=== PATIENT | female | born 1975 | race Hispanic/Latino ===

== ENCOUNTER 2024-11-17 12:41 | Emergency (ER) | payer OTHER ==
[~2024-11-17] VITALS: Ht 154.9 cm; Wt 75.7 kg
[2024-11-17 14:13] LABS: BASOPHILS # (AUTO) 0.06 K/uL (0.00-0.20); BASOPHILS % (AUTO) 0.9 % (0.0-5.0); EOSINOPHILS # (AUTO) 0.16 K/uL (0.00-0.70); EOSINOPHILS % (AUTO) 2.3 % (0.0-8.0); HEMATOCRIT 39.3 % (36-48); IMMATURE GRANULOCYTE ABSOLUTE 0.03 K/uL (0-1); LYMPHOCYTES # (AUTO) 1.3 K/uL (1.0-4.8); LYMPHOCYTES % (AUTO) 19.4 % (21.0-51.0); MEAN CORPUSCULAR HEMOGLOBIN 29.9 pg (27.0-33.0); MEAN CORPUSCULAR HGB CONC 35.6 g/dL (32.0-36.0); MONOCYTES # (AUTO) 0.5 K/uL (0.1-1.0); MONOCYTES % (AUTO) 6.5 % (3.0-13.0); NEUTROPHILS # (AUTO) 4.9 K/uL (1.8-7.7); NEUTROPHILS % (AUTO) 70.5 % (40.0-77.0); PLATELET COUNT (AUTO) 273 K/uL (130-400); RED BLOOD CELL COUNT(AUTO) 4.68 MIL/uL (4.00-5.50); RED CELL DISTRIBUTION WIDTH 12.2 % (11.0-15.5); WHITE BLOOD COUNT (AUTO) 6.9 K/uL (4.8-10.8)
[2024-11-17 14:21] LABS: CREATININE 0.8 mg/dL (0.5-1.0); POTASSIUM 3.6 mmol/L (3.5-5.1)
[2024-11-17 14:28] LABS: ALBUMIN 3.5 g/dL (3.5-5.0); BILIRUBIN,DIRECT 0.1 mg/dL (0.0-0.3); BILIRUBIN,TOTAL 0.5 mg/dL (0.2-1.0); TOTAL PROTEIN, SERUM 7.9 g/dL (6.0-8.3)
--- NOTE | 2024-11-17 15:11 | HMCIMG ---
Exam Type: US ABDOMINAL RUQ\E\LTD Clinical Information: ruq pain Comparison: None Findings: The liver shows normal echogenicity and is otherwise unremarkable. The liver measures less than 16 cm in length. Doppler evaluation shows patent portal and hepatic veins. The gallbladder shows no significant abnormalities. Specifically, no calculi are seen. The gallbladder wall thickness is 2 mm. No bile duct dilatation is noted. The common bile duct measures 4 mm. The right kidney measures 10.7 x 5.3 cm. The right kidney is normal in size and echogenicity. No hydronephrosis or renal calculi are seen. There are no renal masses. The pancreas is unremarkable. IMPRESSION: Normal right upper quadrant abdominal ultrasound.
[2024-11-17] MEDS: MAG/ALUM/SIMETH 30 ML UDCUP PO ONE (15:53)
[2024-11-17] MEDS: ketOROlac 15MG/ML VIAL (15MG/ML) IM ONE (15:53)
[2024-11-17] MEDS: DICYCLOMINE HCL 10 MG/5 ML ML PO ONE (15:54)
[2024-11-17] MEDS: LIDOCAINE HCL 2% VISCOUS 15 ML UDCUP PO ONE (15:54)
--- NOTE | 2024-11-17 15:57 | EKG ---
[facility] Test Date: 2024-11-17 Test Time: 15:54:46 Pat Name: DAVID VELA Department: [facility] Room: Gender: F Clerk Specialist: [id number] : 1975 Requested By: STEPHANIE HUGO Order Number: [id number] Reading MD: Shlomo Bergeron Measurements Intervals [place] Rate: 73 P: 31 NM: 159 QRS: 43 QRSD: 93 T: 0 QT: 396 QTc: 436 Interpretive Statements Sinus rhythm No previous ECG available for comparison Electronically Signed On 11-17-2024 16:37:34 CDT by Shlomo Bergeron Please click the below link to view image of tracing.
[2024-11-17 16:00] VITALS: BP 143/88; PULSE 80; RESP 18; TEMP 97.6; O2SAT 98
--- NOTE | 2024-11-17 16:37 | ERN ---
ED Note History of Present Illness Stated Complaint: ABDOMINAL AND BACK PAIN Chief Complaint: Abdominal Pain Time Seen by MD: 12:54 Time Seen by Midlevel: 12:58 Dictation: 49-year-old female with a history of diabetes coming in complaining of right u pper quadrant pain radiating to the back. Patient states around does not have any fever, vomiting or diarrhea. Allergies: Coded Allergies: No Known Allergies (Unverified Allergy, Unknown, 11/17/24) Past Medical History Past Medical History: Diabetes-Type II, High Cholesterol, Hypertension Surgical History: Other LMP: Sep 07, 2024 Review of System Dictation Constitutional: Negative for fever,chills, and weight loss Eyes: Negative for injury, pain,redness, and discharge ENT: Negative for injury,pain or swelling Cardiovascular: Negative for chest pain, palpitations, and edema Respiratory: Negative for shortness of breath, cough, and wheezing, Abdomen/GI: Right upper quadrant pain with no vomiting nausea or diarrhea Back: Negative for injury and pain : Negative for injury, bleeding and discharge MS/Extremity: Negative for injury and deformity Skin: Negative for rash, and discoloration Neuro: Negative for headache, weakness, numbness, tingling, and seizure Psych: Negative for suicide ideation, homicidal ideation, and hallucinations Review of Systems: was completed Initial Vital Sign VS Vital Signs Date Time Temp Pulse Resp B/P (MAP) Pulse Ox O2 Delivery O2 Flow Rate FiO2 11/17/24 12:56 98.2 93 20 145/84 99 Room Air 11/17/24 13:47 0 21 Physical Exam Dictation General: awake, alert, NAD Head/Face: Normocephalic, atraumatic Eyes: PERRL, EOMI, vision at baseline ENT: oral cavity clear, TMs clear, no signs of infection Neck: Trachea midline, supple, no nuchal rigidity Cardiovascular: RRR, normal S1/S2, No MRGs, no JVD Respiratory: CTAB, no respiratory distress, No rales or wheezes Abdomen: Soft, mild tenderness to palpation to the right upper quadrant , non- distended, normal bowel sounds, no guarding or rebound. Skin: Warm, dry, normal turgor, no rash MS/Extremity: Pulses equal, no cyanosis, neurovascular intact, FROM Neuro: COAx4, GCS 15, strength 5/5, CN 2-12 intact, normal cerebellar exam, normal gait, Psych: Normal behavior, mood, and affect normal Results (Laboratory/Radiology) Laboratory/Radiology Laboratory Tests Test 11/17/24 14:06 White Blood Count 6.9 K/uL (4.8-10.8) Red Blood Count 4.68 MIL/uL (4.00-5.50) Hemoglobin 14.0 g/dL (12.0-16.0) Hematocrit 39.3 % (36-48) Mean Corpuscular Volume 84.0 fL (79-99) Mean Corpuscular Hemoglobin 29.9 pg (27.0-33.0) Mean Corpuscular Hemoglobin Concent 35.6 g/dL (32.0-36.0) Red Cell Distribution Width 12.2 % (11.0-15.5) Platelet Count 273 K/uL (130-400) Mean Platelet Volume 9.4 fL (7.5-10.5) Immature Granulocyte % (Auto) 0.4 % (0-1) Neutrophils (%) (Auto) 70.5 % (40.0-77.0) Lymphocytes (%) (Auto) 19.4 % (21.0-51.0) L Monocytes (%) (Auto) 6.5 % (3.0-13.0) Eosinophils (%) (Auto) 2.3 % (0.0-8.0) Basophils (%) (Auto) 0.9 % (0.0-5.0) Neutrophils # (Auto) 4.9 K/uL (1.8-7.7) Lymphocytes # (Auto) 1.3 K/uL (1.0-4.8) Monocytes # (Auto) 0.5 K/uL (0.1-1.0) Eosinophils # (Auto) 0.16 K/uL (0.00-0.70) Basophils # (Auto) 0.06 K/uL (0.00-0.20) Absolute Immature Granulocyte (auto 0.03 K/uL (0-1) Nucleated Red Blood Cells 0.0 % (0.0-0.19) Sodium Level 139 mmol/L (136-145) Potassium Level 3.6 mmol/L (3.5-5.1) Chloride Level 103 mmol/L (101-111) Carbon Dioxide Level 33 mmol/L (21-32) H Blood Urea Nitrogen 10 mg/dL (7-18) Creatinine 0.8 mg/dL (0.5-1.0) Glomerular Filtration Rate Calc 91 mL/min (>90) Random Glucose 179 mg/dL (70-105) H Total Calcium 8.7 mg/dL (8.5-10.1) Total Bilirubin 0.5 mg/dL (0.2-1.0) Direct Bilirubin 0.1 mg/dL (0.0-0.3) Aspartate Amino Transf (AST/SGOT) 45 U/L (10-37) H Alanine Aminotransferase (ALT/SGPT) 35 U/L (12-78) Alkaline Phosphatase 127 U/L (50-136) Troponin I High Sensitivity 9 ng/L (4-50) Total Protein 7.9 g/dL (6.0-8.3) Albumin 3.5 g/dL (3.5-5.0) Lipase 138 U/L (16-77) H Labs Reviewed?: Yes EKG Comment: EKGs did not 1554, sinus rhythm at a rate of 73. No STEMI interpreted by ER MD Ultrasound Comment: [place] [id number] IMAGING REPORT Signed PATIENT: DAVID VELA MR#: [id number] : 1975 SEX: F AGE: 49 LOCATION: [facility] ORDER 1433 STATUS: REG ER REPORT#: [id number] SERVICE 1432 REASON: ruq pain ORDERING PHYSICIAN: STEPHANIE HUGO NP PROCEDURE: ABDRUQLTD - US ABDOMINAL RUQ\LTD Exam Type: US ABDOMINAL RUQ\E\LTD Clinical Information: ruq pain Comparison: None Findings: The liver shows normal echogenicity and is otherwise unremarkable. The liver measures less than 16 cm in length. Doppler evaluation shows patent portal and hepatic veins. The gallbladder shows no significant abnormalities. Specifically, no calculi are seen. The gallbladder wall thickness is 2 mm. No bile duct dilatation is noted. The common bile duct measures 4 mm. The right kidney measures 10.7 x 5.3 cm. The right kidney is normal in size and echogenicity. No hydronephrosis or renal calculi are seen. There are no renal masses. The pancreas is unremarkable. IMPRESSION: Normal right upper quadrant abdominal ultrasound. DICTATED BY: ARLETTE TOVAR MD DATE: 11/17/24 150 ELECTRONICALLY SIGNED BY: ARLETTE TOVAR MD DATE: 11/17/24 1511 ED Course ED Course Orders Procedure Category Date Status Time Cbc With Differential LAB 11/17/24 Complete 13:39 Basic Metabolic Panel LAB 11/17/24 Complete 13:39 Hepatic Function Panel LAB 11/17/24 Complete 13:39 Lipase LAB 11/17/24 Complete 13:39 Us Abdominal Ruq\Ltd US 11/17/24 Resulted 14:32 12 Lead Ekg Tracing- EKG 11/17/24 Complete Technical 15:37 Troponin I High LAB 11/17/24 Complete Sensitivity 15:37 Ketorolac PHA 11/17/24 Complete Tromethamine 15mg/Ml 16:00 Lidocaine Hcl 2% PHA 11/17/24 Complete Viscous (Lidocaine Hcl 16:00 Mag/Alum/Simeth 30ml PHA 11/17/24 Complete (Maalox Plus 30ml) 16:00 Dicyclomine Hcl PHA 11/17/24 Complete (Bentyl 10mg/5ml 16:00 Current Medications Medications (Trade) Dose Ordered Sig/Hillary Route PRN Reason Start Time Stop Time Status Last Admin Dose Admin Al Hydroxide/Mg Hydroxide (MAALox PLUS 30ML) 30 ml ONCE ONCE PO 11/17/24 16:00 11/17/24 16:01 DC 11/17/24 15:53 Dicyclomine HCl (Bentyl 10mg/5ml Syrup) 10 mg ONCE ONCE PO 11/17/24 16:00 11/17/24 16:01 DC 11/17/24 15:54 Ketorolac Tromethamine (toRADol) 15 mg ONCE ONCE IM 11/17/24 16:00 11/17/24 16:01 DC 11/17/24 15:53 Lidocaine HCl (Lidocaine HCl 2% Viscous) 10 ml ONCE ONCE PO 11/17/24 16:00 11/17/24 16:01 DC 11/17/24 15:54 Vital Signs Date Time Temp Pulse Resp B/P (MAP) Pulse Ox O2 Delivery O2 Flow Rate FiO2 11/17/24 13:47 98.4 88 12 100 Room Air* 0 21 11/17/24 12:56 98.2 93 20 145/84 99 Room Air Medical Decision Making MDM MDM: CBC shows no leukocytosis, no anemia, no thrombocytopenia. Chemistry shows normal kidney function. Hyperglycemia at 179, no transaminitis. Normal T bili. Troponin is negative. Lipase is 138. Ultrasound shows no acute findings. Patient states feels much better after GI cocktail and Toradol. Discussed with the patient's could be related to reflux or PUD and he is to follow up outpatient with the their PCP or GI. Patient verbalized understanding, answered all questions. Differential diagnosis: Pancreatitis, cholecystitis, cholelithiasis, gastroenteritis, GERD Rationale: Tests considered and ordered secondary to shared decision making include: Previous outside records reviewed: Old ER visits. Risk of complication and/or morbidity or mortality of patient management: None Medications-Per medication reconciliation Need for hospitalization: Patient does not meet criteria for hospitalization. Need for emergency major/minor surgery: No There are no social concerns with this patient. Prescription drug management Prescriptions will include symptomatic care Patient's prior external medical records from other ER visits were reviewed by me as indicated. Prior testing and results from previous visits were reviewed. Prior tests were taken into account with medical decision making and resource utilization, independent historian/historians were used to obtain complete medical history. I independently interpreted the test that were performed, results were reviewed by me and considered findings on radiology if ordered. Medical management and examination interpretation discussions were had by me with other qualified healthcare professionals as indicated for the patient's care. DX & DISP Disposition: Discharge Decision to Admit Date: Nov 17, 2024 Decision to Admit Time: 16:37 Departure Impression: Primary Impression: Abdominal pain Condition: Stable Referrals: CLAUDIO POLK (PCP) VISH SHIN MD Time of Disposition: 16:37 I have reviewed the case, and I agree with, Diagnosis and Plan STEPHANIE HUGO NP Nov 17, 2024 16:37
== END 2024-11-17 16:52 | disposition home or self-care (01) ==
LOC: EDH 12:41
DX: R10.11 Right upper quadrant pain (principal); E11.9 Type 2 diabetes mellitus without complications; E78.00 Pure hypercholesterolemia, unspecified; I10 Essential (primary) hypertension; Z98.890 Other specified postprocedural states
CPT/HCPCS: 99285; 76705; 80076; 84484; 80048; 83690; 85025; 36415; 96372; 93005; J1885